=== PATIENT | male | born 1990 | race African-American/Black ===

== ENCOUNTER 2019-01-03 12:53 | Emergency (ER) | payer SELFPAY ==
--- NOTE | 2019-01-03 13:24 | RAD ---
Exam: Left elbow 2 views: HISTORY: Left elbow injury Minimal soft tissue swelling level of the elbow without acute fracture or dislocation. No abnormal cailin int effusion. IMPRESSION: No acute fracture or dislocation. Soft tissue swelling without joint effusion. If the patient has persistent or worsening symptoms, consider nonemergent follow-up MRI for further a ssessment.
[2019-01-03] MEDS ORDERED: Ibuprofen 200 MG TAB ONE (13:34)
== END 2019-01-03 13:37 | disposition home or self-care (01) ==
LOC: SCSER 12:53
DX: S50.02XA Contusion of left elbow, initial encounter (principal); W19.XXXA Unspecified fall, initial encounter